=== PATIENT | female | born 1980 | race Hispanic/Latino ===

== ENCOUNTER 2020-11-25 06:26 | Emergency (ER) | payer SELFPAY ==
--- NOTE | 2020-11-25 07:22 | Emergency Department Report ---
ED Upper Extremity Inj HPI - General Chief Complaint: Shoulder Injury Stated Complaint: SHOULDER PAIN/BRIEN Time Seen by Provider: 11/25/20 07:04 Source: patient Mode of arrival: Ambulatory Limitations: No Limitations - History of Present Illness Initial Comments: 40-year-old female presents to the emergency room complaining of left upper back pain that radiates to her left chest and shoulder after moving a mattress and sofa yesterday. Patient states that when she takes a deep breath she feels a discomfort in her muscle. Patient reports she took 800 mg of ibuprofen around midnight and Tylenol. Patient reports she has a past medical history of depression anxiety and polysubstance abuse. Patient denies any impending doom denies any chest pain except with movement and palpation. Denies any nausea no vomiting no shortness of breath. MD Complaint: Injury to:: left Onset/Timin -: days(s) Handedness: right Severity scale (0 -10): 7 Improves With: rest Worsens With: movement of extremity Context: other (Lifting mattress and sulfa) Associated Symptoms: denies: weakness, numbness, neck pain, suspects foreign body, nausea/vomiting, heard/felt popping sensat Treatments Prior to Arrival: NSAIDS - Related Data Previous Rx's Medication Instructions Recorded Last Taken Type Baclofen [Lioresal] 10 mg PO TID PRN #15 tab 11/25/20 Unknown Rx Ibuprofen [Motrin 800 MG tab] 800 mg PO Q8HR PRN #15 tablet 11/25/20 Unknown Rx Allergies Allergy/AdvReac Type Severity Reaction Status Date / Time No Known Allergies Allergy Verified 02/23/16 18:13 ED Review of Systems ROS: Stated complaint: SHOULDER PAIN/BRIEN Other details as noted in HPI Comment: All other systems reviewed and negative ED Past Medical Hx - Past Medical History Previous Medical History?: Yes Hx Headaches / Migraines: Yes Hx Psychiatric Treatment: Yes (Polysubstance abuse, Depression) Additional medical history: ANXIETY / GLAUCOMA, left elbow - Surgical History Hx Cholecystectomy: Yes Additional Surgical History: TUBAL LIGATION, , Novasure - Social History Smoking Status: Current Every Day Smoker Substance Use Type: None - Medications Home Medications: Home Medications Medication Instructions Recorded Confirmed Last Taken Type Baclofen [Lioresal] 10 mg PO TID PRN #15 tab 11/25/20 Unknown Rx Ibuprofen [Motrin 800 MG tab] 800 mg PO Q8HR PRN #15 tablet 11/25/20 Unknown Rx ED Physical Exam - General Limitations: No Limitations General appearance: alert, in no apparent distress - Head Head exam: Present: atraumatic, normocephalic - Eye Eye exam: Present: normal appearance - ENT ENT exam: Present: normal exam - Neck Neck exam: Present: normal inspection, full ROM. Absent: tenderness - Respiratory Respiratory exam: Present: normal lung sounds bilaterally, chest wall tenderness (Upper pectoralis). Absent: accessory muscle use - Cardiovascular Cardiovascular Exam: Present: regular rate, normal rhythm. Absent: systolic murmur, diastolic murmur, rubs, gallop - Extremities Exam Extremities exam: Present: normal inspection, full ROM. Absent: tenderness - Back Exam Back exam: Present: full ROM, muscle spasm (Left upper back and scapular) - Neurological Exam Neurological exam: Present: alert, oriented X3, normal gait - Psychiatric Psychiatric exam: Present: normal affect, normal mood - Skin Skin exam: Present: warm, dry, intact, normal color. Absent: rash ED Course Vital Signs 11/25/20 06:31 Temperature 97.6 F Pulse Rate 92 H Respiratory 18 Rate Blood Pressure 124/95 O2 Sat by Pulse 98 Oximetry ED Medical Decision Making - Medical Decision Making 40-year-old female presents to the emergency room complaining of left upper back pain that radiates to her left chest and shoulder after moving a mattress and sofa yesterday. Patient states that when she takes a deep breath she feels a discomfort in her muscle. Patient reports she took 800 mg of ibuprofen around midnight and Tylenol. Patient reports she has a past medical history of depression anxiety and polysubstance abuse. Patient denies any impending doom denies any chest pain except with movement and palpation. Denies any nausea no vomiting no shortness of breath. Patient examination and history of present illness represents more of a muscular skeletal in nature. As patient has tenderness to the upper pectoralis and scapular and left deltoid. Patient has reported she had been lifting heavy objects. She denies any nausea vomiting or diaphoresis. EKG within normal limits. Patient will be treated with Toradol 30 mg IM and will discharge patient on baclofen 10 mg every 8 hours as needed and instructed to continue with the ibuprofen or Tylenol for pain management. Patient can use warm heat to her muscles. Critical care attestation.: If time is entered above; I have spent that time in minutes in the direct care of this critically ill patient, excluding procedure time. ED Disposition Clinical Impression: Strain of left pectoralis muscle, Muscle strain of upper back Disposition: DC-01 TO HOME OR SELFCARE Is pt being admited?: No Does the pt Need Aspirin: No Condition: Stable Instructions: Muscle Strain, [id number], How to Use Cold Therapy, [id number] Additional Instructions: EKG is within normal limits. I do not feel that this is a cardiac diagnoses. I feel that this is a muscle strain. Please take your ibuprofen or Tylenol as needed baclofen which is a muscle relaxant as needed. Cold therapy for the first 24 hours then warm heat therapy intermittently as needed. Follow-up with your primary care provider. Prescriptions: Baclofen [Lioresal] 10 mg PO TID PRN #15 tab PRN Reason: Pain , Severe (7-10) Ibuprofen [Motrin 800 MG tab] 800 mg PO Q8HR PRN #15 tablet PRN Reason: Pain Referrals: [facility] [Outside] - 3-[address] [facility] [Outside] - 3-5 Days [facility] [Outside] - 3-5 Days HEART Score - HEART Score History: Slightly suspicious EKG: Normal Age: < 45 Risk factors: No known risk factors Troponin: < normal limit (did check) HEART Score: 0
[2020-11-25] MEDS ORDERED: KETOROLAC 30 MG/1 ML INJ IM ONE (07:24)
[2020-11-25 07:41] VITALS: BP 123/84
--- NOTE | 2020-11-26 10:34 | Electrocardiograph Report ---
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
== END 2020-11-25 07:39 | disposition home or self-care (01) ==
LOC: ED 06:26
DX: S29.011A Strain of muscle and tendon of front wall of thorax, initial encounter (principal); G43.909 Migraine, unspecified, not intractable, without status migrainosus; F32.9 Major depressive disorder, single episode, unspecified; F17.200 Nicotine dependence, unspecified, uncomplicated; Z90.49 Acquired absence of other specified parts of digestive tract; Z98.51 Tubal ligation status; Z79.899 Other long term (current) drug therapy; X50.9XXA Other and unspecified overexertion or strenuous movements or postures, initial encounter; Y93.89 Activity, other specified; Y92.89 Other specified places as the place of occurrence of the external cause; Y99.8 Other external cause status
CPT/HCPCS: 93005; 96372; 99282; J1885

== ENCOUNTER 2021-02-13 13:44 | Emergency (ER) | payer SELFPAY ==
--- NOTE | 2021-02-13 17:29 | Event Note ---
ED Screening Note Date of service: 02/13/21 Time: 17:23 ED Screening Note: 40-year-old female patient with history of cholecystectomy presents to the emergency department with complaints of progressively worsening abdominal pain for 3 weeks followed by the onset of coffee-ground emesis and intermittent black stools starting yesterday. Additionally, patient states she felt "disoriented" upon waking this morning. Patient was evaluated at another local emergency department for her abdominal pain [address] scan of the abdomen/pelvis reportedly showed inflammation of the colon. Symptoms have failed to improve. Yesterday was the first time she noticed any changes in the appearance of her stool or emesis. Patient is not anticoagulated. Patient estimates she has had approximately 5 episodes of coffee-ground emesis and describes her stools as "dark and red." Patient admits her alcohol consumption has increased recently due to stress from her divorce. There is a significant family history of cancer however she is unsure about colon cancer specifically. She has never undergone a colonoscopy. General: Awake, appropriately interactive, no acute distress. Neck: Supple. Full range of motion intact. Cardiovascular: Normal peripheral perfusion. Pulmonary: No respiratory distress. Patient is speaking normally without use of accessory muscles. Abdomen: Soft, nondistended. Diffuse upper abdominal tenderness. Skin: No apparent rashes or lesions. Neurological: No facial asymmetry. Speech is clear. Follows commands. Patient is alert and oriented. Musculoskeletal: Moves all four extremities spontaneously with normal range of motion. Psych: Cooperative. Appropriate mood and affect. I have greeted and performed a focused rapid initial assessment of this patient. A comprehensive ED assessment and evaluation of the patient, analysis of all test results, and completion of the medical decision-making process will be conducted by additional ED providers. This initial assessment/diagnostic orders/clinical plan/treatment(s) is/are subject to change based on patients health status, clinical progression and re-assessment. Further treatment and workup at subsequent clinical provider's discretion. Patient/guardian urged not to elope from the ED as their condition may be serious if not clinically assessed and managed.
[2021-02-13 17:43] LABS: Basophils % (Auto) 0.5 % (0.0-1.8); Eosinophils # (Auto) 0.1 K/mm3 (0.0-0.4); Eosinophils % (Auto) 0.8 % (0.0-4.3); Hematocrit 40.7 % (30.3-42.9); Hemoglobin 13.8 gm/dl (10.1-14.3); Lymphocytes # (Auto) 2.8 K/mm3 (1.2-5.4); Lymphocytes % (Auto) 27.7 % (13.4-35.0); Mean Corpuscular HGB Conc 34 % (30-34); Mean Corpuscular Volume 94 fl (79-97); Monocytes # (Auto) 0.6 K/mm3 (0.0-0.8); Monocytes % (Auto) 6.3 % (0.0-7.3); Platelet Count 265 K/mm3 (140-440); Red Blood Count 4.33 M/mm3 (3.65-5.03)
[2021-02-13 17:53] LABS: INR 2.43 (0.87-1.13); Partial Thromboplastin Time 25.7 Sec. (24.2-36.6)
[2021-02-13 17:58] LABS: Alanine Aminotransferase 22 units/L (7-56); Albumin 4.6 g/dL (3.9-5); Blood Urea Nitrogen 8 mg/dL (7-17); Calcium 9.6 mg/dL (8.4-10.2); Hemolysis Index 4
[2021-02-13 18:26] LABS: BUN/Creatinine Ratio 13
[2021-02-13] MEDS ORDERED: SODIUM CHLORIDE 0.9% 1000 ML 2,000 ML ONE (20:18)
[2021-02-13] MEDS ORDERED: PANTOPRAZOLE 40 MG INJ IV ONE (20:26)
[2021-02-13] MEDS ORDERED: SODIUM CHLORIDE 0.9% 1000 ML 1,000 ML IV ONE ×2 (20:26→21:31)
--- NOTE | 2021-02-13 21:36 | Emergency Department Report ---
HPI - General Chief Complaint: Abdominal Pain Time Seen by Provider: 02/13/21 20:10 - HPI HPI: 40-year-old female presents complaining of 3 weeks of epigastric abdominal pain with new onset of coffee-ground emesis last night. The patient states that she has had epigastric abdominal pain for the last 3 weeks. She states 2 weeks ago she was seen in a local emergency room and had a CT scan which revealed inflammation of her colon. She was prescribed antibiotics but did not take them because of the cost. She says she continued to have some pain and nausea but yesterday had 4 episodes of coffee-ground like emesis. She does admit to taking ibuprofen 800 mg once yesterday. She denies being a daily alcohol drinker. She denies experiencing any fever/chills, headache, vision change, chest pain, shortness of breath, dysuria, black tarry stools, hematuria, or any other complaints. ED Past Medical Hx - Past Medical History Previous Medical History?: Yes Hx Headaches / Migraines: Yes Hx Psychiatric Treatment: Yes (Polysubstance abuse, Depression) Additional medical history: ANXIETY / GLAUCOMA, left elbow - Surgical History Past Surgical History?: Yes Hx Cholecystectomy: Yes Additional Surgical History: TUBAL LIGATION, , Novasure - Social History Smoking Status: Unknown if ever smoked - Medications Home Medications: Home Medications Medication Instructions Recorded Confirmed Last Taken Type Baclofen [Lioresal] 10 mg PO TID PRN #15 tab 11/25/20 Unknown Rx Ibuprofen [Motrin 800 MG tab] 800 mg PO Q8HR PRN #15 tablet 11/25/20 Unknown Rx Omeprazole 20 mg PO DAILY #30 tab. 02/13/21 Unknown Rx Ondansetron [Zofran ODT TAB] 4 mg PO Q8HR PRN #15 tab.john 02/13/21 Unknown Rx ED Review of Systems ROS: Stated complaint: BURING IN STOMACH/VOMITING Other details as noted in HPI Constitutional: denies: chills, fever Eyes: denies: eye pain, vision change ENT: denies: throat pain, congestion Respiratory: denies: cough, shortness of breath Cardiovascular: denies: chest pain, palpitations Gastrointestinal: abdominal pain, nausea, hematemesis. denies: melena, hematochezia Genitourinary: denies: dysuria, frequency Musculoskeletal: denies: back pain, joint swelling Skin: denies: rash Neurological: denies: headache, numbness Physical Exam - Physical Exam Vital Signs: Vital Signs 02/13/21 02/13/21 14:06 20:15 Temperature 98.2 F Pulse Rate 85 73 Respiratory 18 13 Rate Blood Pressure 94/51 Blood Pressure 117/85 [Right] O2 Sat by Pulse 99 98 Oximetry Physical Exam: GENERAL: Well developed and well nourished. No acute distress HEENT: Normocephalic. No obvious signs of trauma. Dry mucous membranes. EYES: Extraocular movements are intact. Pupils are equal round and reactive to light bilaterally NECK: Supple. Trachea is midline. LUNGS: Nonlabored breathing. Equal chest rise bilaterally. Clear to auscultation bilaterally. HEART/CARDIOVASCULAR: Regular rate and rhythm. No murmurs or rubs. VASCULAR: 2+ peripheral pulses. Cap refill < 2 seconds ABDOMEN: Abdomen is soft and nondistended. There is tenderness localized to the epigastrium without guarding or rebound. SKIN: Skin is warm and dry NEURO: Patient is awake, alert, and oriented. human resources representative II-XII grossly intact. No foca l deficits. Normal motor and sensory exam throughout. Normal speech. Normal gait. MUSCULOSKELETAL: No obvious deformities. No significant tenderness. Normal ROM throughout. ED Course Vital Signs 02/13/21 02/13/21 14:06 20:15 Temperature 98.2 F Pulse Rate 85 73 Respiratory 18 13 Rate Blood Pressure 94/51 Blood Pressure 117/85 [Right] O2 Sat by Pulse 99 98 Oximetry ED Medical Decision Making - Lab Data Result diagrams: 02/13/21 17:26 02/13/21 17:26 Laboratory Results - last 24 hr 02/13/21 02/13/21 02/13/21 17:26 17:26 17:26 WBC 10.1 RBC 4.33 Hgb 13.8 Hct 40.7 MCV 94 MCH 32 MCHC 34 RDW 14.0 Plt Count 265 Lymph % (Auto) 27.7 [place] % (Auto) 6.3 Eos % (Auto) 0.8 Baso % (Auto) 0.5 Lymph # (Auto) 2.8 [place] # (Auto) 0.6 Eos # (Auto) 0.1 Baso # (Auto) 0.0 Seg Neutrophils % 64.7 Seg Neutrophils # 6.6 PT 26.7 H INR 2.43 H APTT 25.7 Sodium 142 Potassium 3.6 Chloride 103.4 Carbon Dioxide 30 Anion Gap 12 BUN 8 Creatinine 0.6 Estimated GFR > 60 BUN/Creatinine Ratio 13 Glucose 88 Calcium 9.6 Magnesium 2.00 Total Bilirubin 0.80 AST 22 ALT 22 Alkaline Phosphatase 88 Ammonia Total Protein 7.0 Albumin 4.6 Albumin/Globulin Ratio 1.9 Lipase 17 HCG, Qual Plasma/Serum Alcohol Blood Type Antibody Screen 02/13/21 02/13/21 02/13/21 17:26 17:26 17:26 WBC RBC Hgb Hct MCV MCH MCHC RDW Plt Count Lymph % (Auto) [place] % (Auto) Eos % (Auto) Baso % (Auto) Lymph # (Auto) [place] # (Auto) Eos # (Auto) Baso # (Auto) Seg Neutrophils % Seg Neutrophils # PT INR APTT Sodium Potassium Chloride Carbon Dioxide Anion Gap BUN Creatinine Estimated GFR BUN/Creatinine Ratio Glucose Calcium Magnesium Total Bilirubin AST ALT Alkaline Phosphatase Ammonia 37.0 Total Protein Albumin Albumin/Globulin Ratio Lipase HCG, Qual Plasma/Serum Alcohol < 0.01 Blood Type O POSITIVE Antibody Screen Negative 02/13/21 02/13/21 17:26 21:44 WBC RBC Hgb Hct MCV MCH MCHC RDW Plt Count Lymph % (Auto) [place] % (Auto) Eos % (Auto) Baso % (Auto) Lymph # (Auto) [place] # (Auto) Eos # (Auto) Baso # (Auto) Seg Neutrophils % Seg Neutrophils # PT 14.4 INR 1.07 APTT 27.1 Sodium Potassium Chloride Carbon Dioxide Anion Gap BUN Creatinine Estimated GFR BUN/Creatinine Ratio Glucose Calcium Magnesium Total Bilirubin AST ALT Alkaline Phosphatase Ammonia Total Protein Albumin Albumin/Globulin Ratio Lipase HCG, Qual Negative Plasma/Serum Alcohol Blood Type Antibody Screen - Radiology Data CT ABDOMEN AND PELVIS WITH CONTRAST INDICATION / CLINICAL INFORMATION: epigastric pain/tenderness. TECHNIQUE: Axial CT images were obtained through the abdomen and pelvis following the administration of intravenous contrast. All CT scans at this location are performed using CT dose reduction for ALARA by means of automated exposure control. COMPARISON: None available. FINDINGS: LOWER CHEST: No significant abnormality. LIVER: No significant abnormality. GALLBLADDER: Surgically absent. PANCREAS: No significant abnormality. SPLEEN: No significant abnormality. ADRENALS: No significant abnormality. KIDNEYS / URETERS: There is a 5 mm nonobstructing calculus within the upper pole of the left kidney. URINARY BLADDER: No significant abnormality. REPRODUCTIVE ORGANS: No significant abnormality. Tubal ligation clips are noted bilaterally. STOMACH / SMALL BOWEL: No significant abnormality. COLON: No significant abnormality. APPENDIX: No significant abnormality. PERITONEUM: No free fluid. No free air. No fluid collection. LYMPH NODES: No significant adenopathy. AORTA / ARTERIES: Mild atherosclerotic calcification without acute abnormality. IVC / VEINS: No significant abnormality. SKELETAL SYSTEM: No significant abnormality. ADDITIONAL FINDINGS: None. IMPRESSION: 1. No acute abdominopelvic abnormality. 2. 5 mm nonobstructing left upper pole renal calculus. Signer Name: Weston Girard MD Signed: 02/13/2021 8:54 PM Workstation Name: [id number] - Medical Decision Making 40-year-old female presenting with 3 weeks of epigastric abdominal pain and now 4 episodes of coffee-ground emesis last night. On initial assessment, the patient is afebrile with normal vital signs. Physical examination reveals localized tenderness over the epigastrium without guarding or rebound. She does have dry mucous membranes. The remainder of her physical exam is within normal limits. Bedside stool occult blood test was negative. Labs were drawn in triage and have returned revealing no leukocytosis and normal hemoglobin level of 13.8. She has no significant electrolyte abnormalities or LFT abnormalities. She is noted to have an elevated INR of 2.43, which is of unknown origin. Given that this may be a lab error we will send a repeat INR. We will also obtain CT of the abdomen and pelvis. We will give 2 L of IV fluids, 40 mg of IV Protonix. Repeat labs reveal normal INR consistent with earlier lab error. CT of the abdomen pelvis reveals no acute abnormalities. Therefore the patient will be discharged home with a prescription for omeprazole and instructions to follow-up with the GI doctor soon as possible. Critical Care Time: No Critical care attestation.: If time is entered above; I have spent that time in minutes in the direct care of this critically ill patient, excluding procedure time. ED Disposition Clinical Impression: Epigastric abdominal pain, Nausea & vomiting Disposition: - TO HOME OR SELFCARE Is pt being admited?: No Condition: Stable Instructions: Abdominal Pain (ED), Nausea, Adult, Abdominal Pain, Adult, Ea sy-to-Read Additional Instructions: Follow-up with a hand washer as instructed. Return to the emergency department should you develop significant bloody vomiting or bloody stools, dark tarry stools, or for any other new concerns. Prescriptions: Omeprazole 20 mg PO DAILY #30 tab. Ondansetron [Zofran ODT TAB] 4 mg PO Q8HR PRN #15 tab.rapdis PRN Reason: Nausea Referrals: PRIMARY CARE, [Primary Care Provider] - 3-5 Days Forms: Work/School Release Form(ED)
--- NOTE | 2021-02-13 21:58 | Cat Scan Report ---
CT ABDOMEN AND PELVIS WITH CONTRAST INDICATION / CLINICAL INFORMATION: epigastric pain/tenderness. TECHNIQUE: Axial CT images were obtained through the abdomen and pelvis following the administration of intraven ous contrast. All CT scans at this location are performed using CT dose reduction for ALARA by means of automated exposure control. COMPARISON: None available. FINDINGS: LOWER CHEST: No significant abnormality. LIVER: No significant abnormality. GALLBLADDER: Surgically absent. PANCREAS: No significant abnormality. SPLEEN: No significant abnormality. ADRENALS: No significant abnormality. KIDNEYS / URETERS: There is a 5 mm nonobstructing calculus within the upper pole of the left kidney. URINARY BLADDER: No significant abnormality. REPRODUCTIVE ORGANS: No significant abnormality. Tubal ligation clips are noted bilaterally. STOMACH / SMALL BOWEL: No significant abnormality. COLON: No significant abnormality. APPENDIX: No significant abnormality. PERITONEUM: No free fluid. No free air. No fluid collection. LYMPH NODES: No significant adenopathy. AORTA / ARTERIES: Mild atherosclerotic calcification without acute abnormality. IVC / VEINS: No significant abnormality. SKELETAL SYSTEM: No significant abnormality. ADDITIONAL FINDINGS: None. IMPRESSION: 1. No acute abdominopelvic abnormality. 2. 5 mm nonobstructing left upper pole renal calculus. Signer Name: Weston Girard MD Signed: 02/13/2021 9:54 PM Workstation Name: [id number]
[2021-02-13 22:13] LABS: INR 1.07 (0.87-1.13)
[2021-02-13 22:14] LABS: Partial Thromboplastin Time 27.1 Sec. (24.2-36.6)
[2021-02-13 22:51] VITALS: BP 99/43
== END 2021-02-14 | disposition home or self-care (01) ==
LOC: ED 13:44
DX: R10.13 Epigastric pain (principal); R11.2 Nausea with vomiting, unspecified; F41.9 Anxiety disorder, unspecified; F32.9 Major depressive disorder, single episode, unspecified; G43.909 Migraine, unspecified, not intractable, without status migrainosus; Z98.51 Tubal ligation status; Z98.890 Other specified postprocedural states; Z90.49 Acquired absence of other specified parts of digestive tract; Z79.899 Other long term (current) drug therapy
CPT/HCPCS: 36415; 74177; 80053; 82140; 82271; 83690; 83735; 84703; 85025; 85610; 85730; 86850; 86900; 86901; 96361; 96374; 99284; C9113; J7030; Q9967; 80320; G0480